=== PATIENT | male | born 1940 | race Caucasian/White ===

== ENCOUNTER 2017-11-20 14:19 | Day surgery (SDC) | payer MEDICARE, BC ==
[2017-11-20] VITALS (14 sets, daily range): BP systolic 118–147; BP diastolic 69–94
[~2017-11-20] VITALS: Ht 188 cm; Wt 121.9 kg
[2017-11-20] MEDS ORDERED: MIDAZolam 5mg/ml 2ml vial IV ONE (14:45)
[2017-11-20] MEDS ORDERED: normal saline 1000ml 1,000 ML IV SCH (14:45)
[2017-11-20] MEDS ORDERED: fentaNYL/PF 50MCG/1 ML 2ML syringe IV ONE (14:45)
[2017-11-20] MEDS ORDERED: LEVO88TA2 PO (14:53)
[2017-11-20] MEDS ORDERED: DRON400T2 PO (14:53)
[2017-11-20] MEDS ORDERED: RIVA20TA PO (14:53)
[2017-11-20] MEDS ORDERED: TADA5TAB2 PO (14:53)
[2017-11-20] MEDS ORDERED: ALLO300T8 PO (14:53)
== END 2017-11-20 18:20 | disposition home or self-care (01) ==
LOC: SSTAY O 14:19
PROVIDERS: ATTEND Internal Medicine Interventional Cardiology
DX: I48.2 Chronic atrial fibrillation (principal); G47.33 Obstructive sleep apnea (adult) (pediatric); F17.210 Nicotine dependence, cigarettes, uncomplicated; N40.0 Benign prostatic hyperplasia without lower urinary tract symptoms; E05.80 Other thyrotoxicosis without thyrotoxic crisis or storm; Z86.69 Personal history of other diseases of the nervous system and sense organs; Z79.899 Other long term (current) drug therapy
CPT/HCPCS: 92960; 93005; J2250; J3010; J7030

== ENCOUNTER 2018-01-08 14:18 | Day surgery (SDC) | payer MEDICARE, BC ==
[2018-01-08] VITALS (7 sets, daily range): BP systolic 136–166; BP diastolic 82–106
[~2018-01-08] VITALS: Ht 188 cm; Wt 124.7 kg
[~2018-01-08 14:18] MED LIST: ALLO300T8 PO; DRON400T2 PO; LEVO88TA2 PO; RIVA20TA PO; TADA5TAB2 PO
[2018-01-08] MEDS ORDERED: diphenhydrAMINE 25mg capsule PO PRN (14:40)
[2018-01-08] MEDS ORDERED: LORazepam 0.5 MG tablet PO PRN (14:40)
[2018-01-08] MEDS ORDERED: normal saline 1000ml 1,000 ML IV SCH (14:40)
[2018-01-08] MEDS ORDERED: midazolam 2 mg/2 ml injection ONE (16:24)
[2018-01-08] MEDS ORDERED: iohexol 350MG/ML 100ml bottle IV ONE (16:24)
[2018-01-08] MEDS ORDERED: LIDOcaine 1% 30ml preserv. free vial ONE (16:24)
[2018-01-08] MEDS ORDERED: fentaNYL/PF 50MCG/1 ML 2ML syringe ONE (16:24)
[2018-01-08] MEDS ORDERED: heparin 1,000unit/ml 10ml vial 10 ML ONE (17:09)
[2018-01-08] MEDS ORDERED: ticagrelor 90mg tablet ONE (17:20)
[2018-01-08] MEDS ORDERED: OXAZEpam 15mg capsule PO PRN (17:50)
[2018-01-08] MEDS ORDERED: HYDROcodone/acetaminophen 5mg/325mg tablet PO PRN (17:50)
[2018-01-08] MEDS ORDERED: proCHLORperazine 10 MG/2 ml inj IV PRN (17:50)
[2018-01-08] MEDS ORDERED: ondansetron/PF 4mg/2ml inj IV PRN (17:50)
[2018-01-08] MEDS ORDERED: HYDROcodone/acetaminophen 10/325mg tab PO PRN (17:50)
== END 2018-01-08 19:41 | disposition home or self-care (01) ==
LOC: SSTAY O 14:18
PROVIDERS: ATTEND Internal Medicine Interventional Cardiology
DX: I25.10 Atherosclerotic heart disease of native coronary artery without angina pectoris (principal); I48.91 Unspecified atrial fibrillation; M10.9 Gout, unspecified; G47.33 Obstructive sleep apnea (adult) (pediatric); Z79.899 Other long term (current) drug therapy; Z98.890 Other specified postprocedural states
CPT/HCPCS: 93005; 93458; 99152; 99153; A6257; C1874; C9600; J1644; J2250; J3010; J3490; J7030; Q0163; Q9967; A4620; C1725; C1760; C1769

== ENCOUNTER 2018-09-29 14:02 | Day surgery (SDC) | payer MEDICARE, BC ==
[2018-09-29] VITALS (14 sets, daily range): BP systolic 104–141; BP diastolic 64–89
[~2018-09-29] VITALS: Ht 188 cm; Wt 129.5 kg
[~2018-09-29 14:02] MED LIST changes: -DRON400T2 PO
[2018-09-29] MEDS ORDERED: normal saline 1000ml 1,000 ML IV SCH (14:25)
[2018-09-29] MEDS ORDERED: fentaNYL/PF 50MCG/1 ML 2ML syringe IV ONE (14:25)
[2018-09-29] MEDS ORDERED: MIDAZolam 5mg/ml 2ml vial IV ONE (14:25)
[2018-09-29] MEDS ORDERED: CLOP75TA15 PO (14:35)
[2018-09-29] MEDS ORDERED: ATOR20TA PO (14:35)
[2018-09-29] MEDS ORDERED: METO25TA6 PO (14:35)
[2018-09-29] MEDS ORDERED: CYAN100070 PO (14:45)
[2018-09-29] MEDS ORDERED: FOLI0.8T (14:45)
[2018-09-29] MEDS ORDERED: SAW450CA7 PO (14:45)
[2018-09-29] MEDS ORDERED: [UNRECOGNIZED DRUG - REMARK] (14:45)
[2018-09-29] MEDS ORDERED: ALBU6.7H9 INH (14:45)
[2018-09-29] MEDS ORDERED: UMEC1DIS (14:45)
== END 2018-09-29 18:55 | disposition home or self-care (01) ==
LOC: SSTAY O 14:02
PROVIDERS: ATTEND Internal Medicine Interventional Cardiology
DX: I48.2 Chronic atrial fibrillation (principal); G47.33 Obstructive sleep apnea (adult) (pediatric); I25.10 Atherosclerotic heart disease of native coronary artery without angina pectoris; E03.9 Hypothyroidism, unspecified; M10.9 Gout, unspecified; Z79.899 Other long term (current) drug therapy
CPT/HCPCS: 92960; 93005; J2250; J3010; J7030